=== PATIENT | male | born 1975 | race Caucasian/White ===

== ENCOUNTER 2016-10-20 23:10 | Emergency (ER) | payer OTHER ==
[~2016-10-20] VITALS: Ht 180.3 cm; Wt 77.0 kg
[~2016-10-20 23:10] MED LIST: ASEN10TA9 SL; BACTDS PO; CEPH-443 PO; LIT300 PO
[2016-10-20 23:14] VITALS: Ht 180.3 cm; Wt 77.0 kg
[2016-10-21 00:05] VITALS: TEMP 97.6
--- NOTE | 2016-10-21 00:15 | RADRPT ---
PROCEDURE: CT brain without contrast CLINICAL INDICATION: Altered level of consciousness TECHNIQUE: A CT of the brain was performed utilizing axial sections from the skull base through th e vertex without contrast. Sagittal and coronal images were also reformatted. The exam CTDIvol = 45. 01 mGy and DLP = 810.25 mGy-cm. COMPARISON: None available FINDINGS: No acute intracranial hemorrhage is identified. There is no mass effect or midline shift. No extra -axial fluid collection is seen. The ventricles and sulci are within normal limits for size and con figuration. The density of the brain is within normal limits. Pickett-white differentiation is preser jim. The osseous structures are unremarkable. The mastoid air cells and visualized paranasal sinuses are clear. RPTAT:HJJR IMPRESSION: Unremarkable noncontrast CT of the brain. Physician Laila Date Time Electronically viewed and signed by Physician Laila on 10/21/2016 00:15 /
[2016-10-21 00:18] LABS: ADD SCAN DIFF NO
[2016-10-21 00:21] LABS: BASOPHILS % 0.4 % (0.0-2.0); EOSINOPHILS # 0.2 10^3/ul (0.0-0.5); EOSINOPHILS % 2.6 % (0.0-7.0); HEMATOCRIT 42.7 % (42.0-52.0); HEMOGLOBIN 13.9 g/dl (14.0-18.0); LYMPHOCYTES # 3.8 10^3/ul (0.8-2.9); LYMPHOCYTES % 46.7 % (15.0-51.0); MEAN CORPUSCULAR HEMOGLOBIN 28.8 pg (29.0-33.0); MEAN CORPUSCULAR HGB CONC 32.6 g/dl (32.0-37.0); MEAN CORPUSCULAR VOLUME 88.6 fl (82.0-101.0); MEAN PLATELET VOLUME 10.1 fl (7.4-10.4); MONOCYTE # 0.9 10^3/ul (0.3-0.9); MONOCYTES % 11.3 % (0.0-11.0); NEUTROPHIL # 3.2 10^3/ul (1.6-7.5); NEUTROPHILS % 38.8 % (39.0-77.0); PLATELET COUNT 335 10^3/UL (140-415); RED BLOOD COUNT 4.82 10^6/ul (4.70-6.10); RED CELL DISTRIBUTION WIDTH 17.1 % (11.5-14.5); WHITE BLOOD COUNT 8.2 10^3/ul (4.8-10.8)
--- NOTE | 2016-10-21 00:33 | RADRPT ---
PROCEDURE: XR Chest. CLINICAL INDICATION: Altered level of consciousness. TECHNIQUE: Portable AP view of the chest was obtained. COMPARISON: None. FINDINGS: The cardiomediastinal silhouette is within normal limits. The lungs are clear. There is no evidenc e for pleural effusion, pneumothorax or pulmonary vascular congestion. The osseous structures are i ntact with no evidence for acute abnormality. RPTAT:HJJR IMPRESSION: No evidence for acute intrathoracic pathology. Physician Laila Date Time Electronically viewed and signed by Jose Russell Physician on 10/21/2016 00:33 JR/
[2016-10-21 00:41] LABS: ADD UMIC NO; URINE BILIRUBIN (Dip) NEGATIVE (NEGATIVE); URINE BLOOD (Dip) NEGATIVE (NEGATIVE); URINE COLOR LT. YELLOW (YELLOW); URINE GLUCOSE (Dip) NEGATIVE (NEGATIVE); URINE KETONES (Dip) NEGATIVE (NEGATIVE); URINE LEUKOCYTE ESTERASE (Dip) NEGATIVE (NEGATIVE); URINE NITRITE (Dip) NEGATIVE (NEGATIVE); URINE TOTAL PROTEIN (Dip) NEGATIVE (NEGATIVE); URINE UROBILINOGEN (Dip) 0.2 E.U./dL (0.1-1.0)
[2016-10-21 01:24] LABS: BARBITURATES Negative (NEGATIVE); BENZODIAZEPINES Negative (NEGATIVE)
[2016-10-21 01:31] LABS: ACETAMINOPHEN < 10.0 ug/ml (10.0-30.0); CANNABINOIDS Negative (NEGATIVE); COCAINE Negative (NEGATIVE); OPIATES Negative (NEGATIVE); SALICYLATE < 1.0 mg/dl (5.0-30.0)
[2016-10-21 01:33] LABS: CHLORIDE 106 mmol/L (97-110); POTASSIUM 4.1 mmol/L (3.5-5.1); SODIUM 140 mmol/L (135-144)
[2016-10-21 01:34] LABS: ALANINE AMINOTRANSFERASE 169 IU/L (13-69); ALBUMIN 4.1 g/dl (3.3-4.9); ALBUMIN/GLOBULIN RATIO 1.32; ALKALINE PHOSPHATASE 86 IU/L (42-121); ANION GAP 13 (8-16); ASPARTATE AMINO TRANSFERASE 108 IU/L (15-46); BLOOD UREA NITROGEN 5 mg/dl (7-20); CARBON DIOXIDE 25 mmol/L (21-31); CREATININE 0.66 mg/dl (0.61-1.24); GLUCOSE 93 mg/dl (70-220); TOTAL PROTEIN 7.2 g/dl (6.1-8.1)
--- NOTE | 2016-10-21 02:26 | ERD ---
ER Documentation Chief Complaint Date/Time DATE: 10/21/16 TIME: 02:19 Chief Complaint found sleeping infront of 711, excessivley sleepy, arousable to voice HPI 40-year-old male with a history of bipolar disorder brought in by ambulance from [facility] after he was found in the front of the store sleeping for several hours. Patient currently has no complaints. Is very difficult to get history from him as he is very sleepy. He states that he does not know if he took any medications today or if he drank any alcohol. He does not know the last time he used drugs. He denies any current pain, suicidal ideations, hallucinations. He states that he is only very tired. He is on Zyprexa and Celexa. ROS Limited given patient's intoxication Medications Home Meds Active Scripts [place] Carbonate* ([place]*) 300 Mg Cap, 300 MG PO BID, #60 CAP Prov:JOSÉ MIGUEL WALDRON MD 12/07/15 Asenapine (Saphris) 10 Mg Tab.subl, 10 MG SL BID, #60 Prov:JOSÉ MIGUEL WALDRON MD 12/07/15 Cephalexin* (Keflex*) 500 Mg Capsule, 500 MG PO QID for 7 Days, CAP Prov:JOSÉ MIGUEL WALDRON MD 12/07/15 Sulfamethoxazole-Trimethoprim* (Bactrim* DS) 800-160 Mg Tab, 1 TAB PO BID for 7 Days, TAB Prov:JOSÉ MIGUEL WALDRON MD 12/07/15 Reported Medications [place] Carbonate* ([place]*) 300 Mg Cap, 300 MG PO BID, CAP 12/07/15 Allergies Allergies: Coded Allergies: No Known Allergy (Unverified , 04/12/13) PMhx/Soc History of Surgery: No Anesthesia Reaction: No Hx Neurological Disorder: No Hx Respiratory Disorders: No Hx Cardiac Disorders: No Hx Psychiatric Problems: No Hx Miscellaneous Medical Probl: Yes (anxiety; hep c,BIPOLAR) Hx Alcohol Use: Yes (OCCASSIONALLY) Hx Substance Use: No Hx Tobacco Use: Yes Smoking Status: Current every day smoker FmHx Family History: other (Unable to obtain) Physical Exam Vitals Vital Signs Date Time Temp Pulse Resp B/P Pulse Ox O2 Delivery O2 Flow Rate FiO2 10/21/16 03:00 73 16 111/68 99 Room Air 10/21/16 02:00 91 16 103/64 97 Room Air 10/21/16 00:05 97.6 51 14 106/78 97 Room Air 10/20/16 23:14 97.7 57 18 106/78 97 Physical Exam Const: Somnolent but arousable, disheveled, nontoxic Head: Atraumatic Eyes: Normal Conjunctiva ENT: Normal External Ears, Nose and Mouth. Neck: Full range of motion. No meningismus. Resp: Clear to auscultation bilaterally Cardio: Regular rate and rhythm, no murmurs Abd: Soft, non tender, non distended. Normal bowel sounds Skin: No petechiae or rashes Back: No midline or flank tenderness Ext: No cyanosis, or edema Neur: Somnolent but arousable, normal speech, oriented 3. Moving all extremities. Psych: Normal Mood and Affect Result Diagram: 10/21/16 0000 10/21/16 0000 Results 24 hrs Laboratory Tests Test 10/21/16 00:00 White Blood Count 8.210^3/ul Red Blood Count 4.8210^6/ul Hemoglobin 13.9g/dl Hematocrit 42.7% Mean Corpuscular Volume 88.6fl Mean Corpuscular Hemoglobin 28.8pg Mean Corpuscular Hemoglobin Concent 32.6g/dl Red Cell Distribution Width 17.1% Platelet Count 02981^3/UL Mean Platelet Volume 10.1fl Neutrophils % 38.8% Lymphocytes % 46.7% Monocytes % 11.3% Eosinophils % 2.6% Basophils % 0.4% Nucleated Red Blood Cells % 0.0/100WBC Neutrophils # 3.210^3/ul Lymphocytes # 3.810^3/ul Monocytes # 0.910^3/ul Eosinophils # 0.210^3/ul Basophils # 0.010^3/ul Nucleated Red Blood Cells # 0.010^3/ul Urine Color LT. YELLOW Urine Clarity CLEAR Urine pH 6.0 Urine Specific Mabel 1.010 Urine Ketones NEGATIVE Urine Nitrite NEGATIVE Urine Bilirubin NEGATIVE Urine Urobilinogen 0.2 E.U./dL Urine Leukocyte Esterase NEGATIVE Urine Hemoglobin NEGATIVE Urine Glucose NEGATIVE% Urine Total Protein NEGATIVE Sodium Level 140mmol/L Potassium Level 4.1mmol/L Chloride Level 106mmol/L Carbon Dioxide Level 25mmol/L Anion Gap 13 Blood Urea Nitrogen 5mg/dl Creatinine 0.66mg/dl Glucose Level 93mg/dl Calcium Level 9.0mg/dl Total Bilirubin 0.0mg/dl Direct Bilirubin 0.00mg/dl Indirect Bilirubin 0.0mg/dl Aspartate Amino Transf (AST/SGOT) 108IU/L Alanine Aminotransferase (ALT/SGPT) 169IU/L Alkaline Phosphatase 86IU/L Total Protein 7.2g/dl Albumin 4.1g/dl Globulin 3.10g/dl Albumin/Globulin Ratio 1.32 Salicylates Level < 1.0mg/dl Urine Opiates Screen Negative Acetaminophen Level < 10.0ug/ml Urine Barbiturates Negative Urine Amphetamines Screen POSITIVE Urine Benzodiazepines Screen Negative Urine Cocaine Screen Negative Urine Cannabinoids Negative Ethyl Alcohol Level 228.0mg/dl Procedures/MDM EKG: Rate/Rhythm: Sinus bradycardia at 59 bpm QRS, ST, T-waves: No changes consistent w/ acute ischemia Impression: No evidence of ischemia or arrhythmia Chest x-ray does not show any acute abnormalities CT head does not show acute abnormality Labs were notable for elevated EtOH level, UDS positive for amphetamines. CBC and CMP within normal limits. Urinalysis normal. Patients presenting with altered mental status. Vitals are within normal limits. Patient maintaining airway. Based on EMS report and exam, patients AMS is likely related to alcohol or drug intoxication. I have a low suspicion for serious metabolic or electrolyte derangement, intracranial hemorrhage, acute infectious process, meningitis/encephalitis, or CVA. Patient was observed for 5 hours in the ER with serial examinations and mental status evaluations and improvement of mental status. Upon discharge, patient was ambulating with a steady gait and tolerating food. Departure Diagnosis: Primary Impression: Altered level of consciousness Additional Impressions: Alcohol intoxication Complication of substance-induced condition: uncomplicated Qualified Code: F10.120 - Alcohol intoxication, uncomplicated Methamphetamine use Condition: Stable EKTERESA PUCKETT MD Oct 21, 2016 02:26
[2016-10-21 03:00] VITALS: BP 111/68; PULSE 73; RESP 16
== END 2016-10-21 05:50 | disposition home or self-care (01) ==
LOC: E/R 23:10
DX: R40.4 Transient alteration of awareness (principal); F10.120 Alcohol abuse with intoxication, uncomplicated; F15.20 Other stimulant dependence, uncomplicated; F17.210 Nicotine dependence, cigarettes, uncomplicated
CPT/HCPCS: 36415; 70450; 71010; 80053; 80306; 80307; 81003; 85025; 93005

== ENCOUNTER 2016-10-21 06:02 | Emergency (ER) | payer OTHER ==
[~2016-10-21] VITALS: Ht 182.9 cm; Wt 73.0 kg
[2016-10-21 06:03] VITALS: Ht 182.9 cm; Wt 73.0 kg
--- NOTE | 2016-10-21 06:24 | ERD ---
ER Documentation Chief Complaint Date/Time DATE: 10/21/16 TIME: 06:20 Chief Complaint suicidal ideation' "walk in front of a car" HPI 40-year-old male presents to the emergency department with suicidal ideation. Patient was admitted last night with an altered mental status. He was lethargic at that time. Diagnostic workup demonstrated methamphetamine and alcohol. He was observed in our emergency department until sober and reevaluated. Currently, upon reevaluation, patient now complains of suicidal ideation with a plan to walk in front of traffic. He would like to voluntarily check himself into a psychiatric facility. Patient has no further medical complaints. ROS All systems reviewed and are negative except as per history of present illness. Medications Home Meds Active Scripts [place] Carbonate* ([place]*) 300 Mg Cap, 300 MG PO BID, #60 CAP Prov:JOSÉ MIGUEL WALDRON MD 12/07/15 Asenapine (Saphris) 10 Mg Tab.subl, 10 MG SL BID, #60 Prov:JOSÉ MIGUEL WALDRON MD 12/07/15 Cephalexin* (Keflex*) 500 Mg Capsule, 500 MG PO QID for 7 Days, CAP Prov:JOSÉ MIGUEL WALDRON MD 12/07/15 Sulfamethoxazole-Trimethoprim* (Bactrim* DS) 800-160 Mg Tab, 1 TAB PO BID for 7 Days, TAB Prov:JOSÉ MIGUEL WALDRON MD 12/07/15 Reported Medications [place] Carbonate* ([place]*) 300 Mg Cap, 300 MG PO BID, CAP 12/07/15 Allergies Allergies: Coded Allergies: No Known Allergy (Unverified , 04/12/13) PMhx/Soc History of Surgery: No Anesthesia Reaction: No Hx Neurological Disorder: No Hx Respiratory Disorders: No Hx Cardiac Disorders: No Hx Psychiatric Problems: No Hx Miscellaneous Medical Probl: Yes (anxiety; hep c,BIPOLAR) Hx Alcohol Use: Yes (OCCASSIONALLY) Hx Substance Use: No Hx Tobacco Use: Yes FmHx Noncontributory for chief complaint Physical Exam Vitals Vital Signs Date Time Temp Pulse Resp B/P Pulse Ox O2 Delivery O2 Flow Rate FiO2 10/21/16 06:03 97.7 88 20 124/76 99 Physical Exam GENERAL: The patient is well developed and appropriate for usual state of health in no apparent distress HEENT: Pupils equal, round, and reactive to light. EOMI. There is no scleral icterus. NECK: C-spine is soft and supple, there is no meningismus. There is no cervical lymphadenopathy. LUNGS: Clear to auscultation bilaterally. There are no rales, wheezes or rhonchi. HEART: Regular rate and rhythm, no murmurs, clicks, rubs or gallops. ABDOMEN: Soft, non-tender, non-distended. There are bowel sounds in all four quadrants. No rebound or guarding. EXTREMITIES: There is no peripheral cyanosis or edema. No focal swelling or erythema. NEURO: The patient moves all four extremities with 5/5 strength. Cranial nerves II - XII are intact. Normal gait. Alert and oriented SKIN: There is no apparent rash or petechiae. HEME/LYMPHATIC: There is no evidence of excessive bruising or lymphedema. PSYCHIATRIC: Patient is awake, alert, oriented. He provides a clear plan. He is suicidal with an active plan to run in front of traffic. Denies auditory or visual hallucinations. Procedures/MDM Patient was taken to a room, seen and evaluated. Comfort measures were initiated. Diagnostic tests were ordered and reviewed. CONSULTATION: [facility] was notified and had a voluntary bed available for the patient. MEDICAL DECISION MAKING: Patient presents with symptomatology consistent with the decompensation of previously diagnosed psychiatric disease. Based on history, physical exam and appropriate lab tests, I appreciate no evidence of significant life threatening injury or illness that precludes psychiatric hospitalization. Patient is thus "medically clear" for psychiatric admission. In regards to the psychiatric complaints, this patient has clear evidence of high risk psychiatric symptoms with significant risk for decompensation, thus requiring voluntary hospitalization for stabilization. Patient is medically clear for psychiatric hospitalization Departure Diagnosis: Primary Impression: Suicidal ideation Condition: ZARI Pierre Oct 21, 2016 06:23
[2016-10-21 10:49] VITALS: BP 124/76; PULSE 70; RESP 20; TEMP 97.7
== END 2016-10-21 11:02 ==
LOC: E/R 06:02
DX: F29 Unspecified psychosis not due to a substance or known physiological condition (principal); R45.851 Suicidal ideations; Z87.891 Personal history of nicotine dependence
CPT/HCPCS: 99285